=== PATIENT | female | born 1960 | race Caucasian/White ===

== ENCOUNTER 2017-01-15 15:35 | Observation (INO) | payer OTHER ==
[2017-01-15] VITALS (8 sets, daily range): BP systolic 99–159; BP diastolic 57–94; PULSE 80–104; RESP 16–24; TEMP 99.2–101.1; O2SAT 93–99
[~2017-01-15] VITALS: Ht 167.6 cm; Wt 90.0 kg
--- NOTE | 2017-01-15 15:43 | PD ---
Physical Exam Date Seen by Provider: Jan 15, 2017 Time Seen by Provider: 15:41 Narrative 56 yo female that presents to the ED for evaluation of abdominal pain and fever. Going on for a few days. Worst today. Has had headache, chest pain, body aches. Nothing makes it better. Vomited today. No BM issues. Pain in chest is constant. Hurt to take a deep breath. Vitals are stable in triage with except of elevated HR and fever. Awaiting bed placement. Data Data Last Documented VS Vital Signs Date Time Temp Pulse Resp B/P Pulse Ox O2 Delivery O2 Flow Rate FiO2 01/15/17 15:37 101.1 104 24 159/94 95 Room Air [facility] Medical Record Reviewed: Yes Supervised Visit with ISAIAH: No Alberto Echevarria Jan 15, 2017 15:43
--- NOTE | 2017-01-15 16:05 | RADRPT ---
EXAM DATE/TIME: 01/15/2017 15:44 CORRECTION Corrected on: January 17, 2017; Surgical History added [facility] COMPARISON: No previous studies available for comparison. INDICATIONS : Chest pain starting today MEDICAL HISTORY : Chronic obstructive pulmonary disease. Asthma SURGICAL HISTORY : Pacemaker ENCOUNTER: Initial ACUITY: 1 day PAIN SCORE: 10/10 LOCATION: Left chest FINDINGS: In place. Minimal linear parenchymal opacities in the left lower lung zone consistent with atelectasi s. Lungs otherwise clear. Cardiomediastinal contours are within normal limits. Bony thorax is intact. CONCLUSION: 1. Linear left lower lung zone parenchymal opacities consistent with atelectasis. Jfef Singleton MD on January 15, 2017 at 16:02 Board Certified Radiologist. This report was verified electronically. on January 17, 2017 at 10:37 Board Certified Radiologist. This report was verified electronically.
[2017-01-15 16:39] LABS: AUTOMATED NEUTROPHIL # 15.8 TH/MM3 (1.8-7.7); BASOPHIL % 0.2 % (0.0-2.0); EOSINOPHIL % 0.2 % (0.0-4.0); HEMATOCRIT 37.9 % (35.0-46.0); HEMO FLAGS DIFF FINAL; LYMPH % 8.5 % (9.0-44.0); LYMPHOCYTE # 1.5 TH/MM3 (1.0-4.8); MEAN CELL VOLUME 82.7 FL (80.0-100.0); MEAN CORPUSCULAR HEMOGLOBIN 27.3 PG (27.0-34.0); NEUT % 87.1 % (16.0-70.0); PLATELET COUNT 253 TH/MM3 (150-450); RED BLOOD COUNT 4.59 MIL/MM3 (4.00-5.30); RED CELL DISTRIBUTION WIDTH 15.2 % (11.6-17.2); WHITE BLOOD COUNT 18.2 TH/MM3 (4.0-11.0)
[2017-01-15] MEDS ORDERED: SODIUM CHLOR 0.9% 1000 ML INJ 1,000 ML IV ONE (16:45)
[2017-01-15 17:01] LABS: ANION GAP 8 MEQ/L (5-15); BICARBONATE 28.5 MEQ/L (21.0-32.0); BLOOD UREA NITROGEN 9 MG/DL (7-18); CHLORIDE 105 MEQ/L (98-107); GLOMERULAR FILTRATION RATE 91 ML/MIN (>89); POTASSIUM 3.6 MEQ/L (3.5-5.1); SODIUM (NA) 141 MEQ/L (136-145)
[2017-01-15 17:08] LABS: CREATINE KINASE 82 U/L (26-192)
--- NOTE | 2017-01-15 17:57 | PD ---
HPI Chief Complaint: Chest Pain Time Seen by Provider: 16:32 Travel History International Travel<30 days: No Contact w/Intl Traveler<30days: No Traveled to known affect area: No History of Present Illness HPI 56-year-old female with a history of pacemaker, who presents today with complaints of left lower chest pain. Patient also reports cough with fever and chills. She states she had a temperature 102.2 at home yesterday. She's rechecked it today and it was 101.1. The patient has had a cough with no production. She states she the need to cough up phlegm but can't get up. When asked about the chest pressure. She reports it's tightness across the chest without nausea or diaphoresis. She does report that she's felt dizzy. She also reported shortness of breath. PFSH Past Medical History Hiatal Hernia: Yes ?: Not Past Surgical History Abdominal Surgery: Yes (Lap band) AICD: Yes Cholecystectomy: Yes Hysterectomy: Yes Thoracic Surgery: Yes (cervial fusion) Social History Alcohol Use: Yes (occu last friday) Tobacco Use: Yes (months ago) Substance Use: No Allergies-Medications (Allergen,Severity, Reaction): Coded Allergies: Shellfish (Verified Allergy, Severe, RASH , 01/15/17) Uncoded Allergies: surgical tape (Adverse Reaction, Unknown, rash , 01/15/17) Review of Systems Except as stated in HPI: all other systems reviewed are Neg General / Constitutional: Positive: Fever, Chills HENT: Positive: Headaches (mild bifrontal), No: Lightheadedness, Neck Pain Cardiovascular: Positive: Chest Pain or Discomfort (left sided), No: Palpitations, Irregular Rhythm Respiratory: Positive: Cough (nonproductive), Shortness of Breath Gastrointestinal: Positive: Nausea, Vomiting Musculoskeletal: Positive: Pain, No: Weakness Neurologic: Positive: Headache (mild bifrontal), No: Weakness, Dizziness, Change in Mentation Physical Exam Narrative GENERAL: Well-nourished, well-developed patient in mild respiratory discomfort. SKIN: Focused skin assessment warm/dry. HEAD: Normocephalic last atraumatic. EYES: No scleral icterus. No injection or drainage. NECK: Supple, trachea midline. CARDIOVASCULAR: Regular rate and rhythm without murmurs, gallops, or rubs. RESPIRATORY: Fine Rales heard at the left base. No rhonchi. Right lung dasilva clear GASTROINTESTINAL: Abdomen soft, non-tender, nondistended. MUSCULOSKELETAL: No cyanosis, or edema. NEUROLOGICAL: Awake and alert. Cranial nerves II through XII intact. Motor grossly within normal limits. Five out of 5 muscle strength in all muscle groups. Normal speech. PSYCHIATRIC: No delusional thought processes. No hallucinations. Data Data Last Documented VS Vital Signs Date Time Temp Pulse Resp B/P Pulse Ox O2 Delivery O2 Flow Rate FiO2 01/15/17 17:32 93 16 125/70 95 Room Air 01/15/17 16:12 2 01/15/17 15:37 101.1 Orders Electrocardiogram (01/15/17 15:45) Complete Blood Count With Diff (01/15/17 15:45) Basic Metabolic Panel (Bmp) (01/15/17 15:45) Ckmb (Isoenzyme) Profile (01/15/17 15:45) Troponin I (01/15/17 15:45) Chest, Single Ap (01/15/17 15:45) Iv Access Insert/Monitor (01/15/17 15:45) Ecg Monitoring (01/15/17 15:45) Oxygen Administration (01/15/17 15:45) Oximetry (01/15/17 15:45) Blood Culture (01/15/17 16:32) Sodium Chlor 0.9% 1000 Ml Inj (Ns 1000 M (01/15/17 16:45) Ceftriaxone Inj (Rocephin Inj) (01/15/17 18:00) Azithromycin Inj (Zithromax Inj) (01/15/17 18:00) Admit Order (Ed Use Only) (01/15/17 17:59) Labs Laboratory Tests Test 01/15/17 16:10 White Blood Count 18.2 TH/MM3 Red Blood Count 4.59 MIL/MM3 Hemoglobin 12.5 GM/DL Hematocrit 37.9 % Mean Corpuscular Volume 82.7 FL Mean Corpuscular Hemoglobin 27.3 PG Mean Corpuscular Hemoglobin 33.0 % Concent Red Cell Distribution Width 15.2 % Platelet Count 253 TH/MM3 Mean Platelet Volume 8.1 FL Neutrophils (%) (Auto) 87.1 % Lymphocytes (%) (Auto) 8.5 % Monocytes (%) (Auto) 4.0 % Eosinophils (%) (Auto) 0.2 % Basophils (%) (Auto) 0.2 % Neutrophils # (Auto) 15.8 TH/MM3 Lymphocytes # (Auto) 1.5 TH/MM3 Monocytes # (Auto) 0.7 TH/MM3 Eosinophils # (Auto) 0.0 TH/MM3 Basophils # (Auto) 0.0 TH/MM3 CBC Comment DIFF FINAL Differential Comment Sodium Level 141 MEQ/L Potassium Level 3.6 MEQ/L Chloride Level 105 MEQ/L Carbon Dioxide Level 28.5 MEQ/L Anion Gap 8 MEQ/L Blood Urea Nitrogen 9 MG/DL Creatinine 0.67 MG/DL Estimat Glomerular Filtration 91 ML/MIN Rate Random Glucose 90 MG/DL Calcium Level 8.9 MG/DL Total Creatine Kinase 82 U/L Troponin I LESS THAN 0.02 NG/ML MDM Medical Decision Making Medical Screen Exam Complete: Yes Emergency Medical Condition: Yes Differential Diagnosis ACS versus pneumonia versus pulmonary embolus versus pleurisy Narrative Course 56-year-old female with a history of pacemaker, presents today with complaints of shortness of breath, cough, fever and left sided chest pain. The patient's chest pain is somewhat atypical for cardiac etiology. The patient does not have a paced rhythm on EKG. Her ventricular rate was [address] elevations or depressions. Patient's cardiac enzymes are within normal limits. The patient white blood cell count was 18,200. Given her cardiac history, I feel she would benefit from observation, given IV antibiotics and ruled out cardiac-guzman. The case was discussed with Dr. Sina Stone who is agreeable for the observation status. He'll come see the patient within the next 30 minutes. Diagnosis Primary Impression: Left lower lobe pneumonia Additional Impressions: Chest pain Leukocytosis History of pacemaker Admitting Information Admitting Physician Requests: Observation Russell Christy MD Jan 15, 2017 17:57
[2017-01-15] MEDS ORDERED: cefTRIAXone INJ 1,000 MG in SODIUM CHLORIDE 0.9% INJ 100 ML IV ONE (18:00)
[2017-01-15] MEDS ORDERED: AZITHROMYCIN INJ 500 MG in SODIUM CHLOR 0.9% 250 ML INJ 250 ML IV ONE (18:00)
--- NOTE | 2017-01-15 18:54 | HHI.HP ---
HPI Service [facility] Hospitalists Primary Care Physician Matt Fitch M.D. Admission Diagnosis left lower lobe pneumonia, chest pain, leukocytosis Chief Complaint: fever, cough, chest pain Travel History International Travel<30 Days: No Contact w/Intl Traveler <30 Da: No Traveled to Known Affected Are: No Sepsis Criteria SIRS Criteria (2 or more): Temp > 100.9 or < 96.8, WBC > 84234, < 4000 or > 10 % bands Sepsis Criteria (SIRS+source): Infect source susp/known Criteria Outcome: Meets sepsis criteria History of Present Illness [id number] female with history of bradycardic arrhythmia requiring pacemaker placement presents to the ER for fever of 101 at home with cough duration of 2 days. She noted some left chest wall pain today around her pacemaker and that combined with the fever caused her to come to the ER. Her cough has been minimally productive. She's had no foreign travel. Denies any hemoptysis or hematemesis. She notes that she does often develop a fever when she gets a cold or upper respiratory infection. She apparently has some underlying asthma or obstructive lung disease given that she is on Symbicort but she is not sure. She moved to the area only last year from [place]. No one else in her household is sick. ER evaluation revealed low-grade fever with an elevated white count of 18,000 and findings chest x-ray worrisome for possible left lower lobe infiltrate. Review of Systems Constitutional: COMPLAINS OF: Diaphoretic episodes, Fever, Chills, DENIES: Fatigue, Weight gain, Weight loss, Dizziness, Change in appetite, Night Sweats Eyes: DENIES: Blurred vision, Diplopia, Eye inflammation, Eye pain, Vision loss , Photosensitivity, Double Vision Ears, nose, mouth, throat: DENIES: Tinnitus, Hearing loss, Vertigo, Nasal discharge, Oral lesions, Throat pain, Hoarseness, Ear Pain, Running Nose, Epistaxis, Sinus Pain, Toothache, Odynophagia Respiratory: COMPLAINS OF: Cough, Sputum production, Shortness of breath, DENIES: Apneas, Snoring, Wheezing, Hemoptysis Cardiovascular: COMPLAINS OF: Chest pain, DENIES: Palpitations, Syncope, Dyspnea on Exertion, PND, Lower Extremity Edema, Orthopnea, Claudication Gastrointestinal: DENIES: Abdominal pain, Black stools, Bloody stools, BRB per rectum, Constipation, Diarrhea, GERD, Nausea, Reflux, Vomiting, Difficulty Swallowing, Anorexia, See HPI Musculoskeletal: DENIES: Joint pain, Muscle aches, Stiffness, Joint Swelling, Back pain, Neck pain Integumentary: DENIES: Abnormal pigmentation, Pruritus, Rash, Nail changes, Breast masses, Breast skin changes, Nipple discharge Immunologic/allergic: DENIES: Eczema, Urticaria Neurologic: DENIES: Abnormal gait, Headache, Localized weakness, Paresthesias, Seizures, Speech Problems, Tremor, Poor Balance Psychiatric: COMPLAINS OF: Anxiety Past Family Social History Past Medical History Bradycardic arrhythmia requiring pacer placement Possible asthma versus obstructive lung disease Obesity Past Surgical History Pacemaker placement in 2014 Cholecystectomy 2009 Ventral hernia repair 2009 Surgery for spinal stenosis around 2010 Piero-en-Y 2002 Left band 2006 Reported Medications Metoprolol 50 mg twice a day Symbicort 1 puff daily she is not sure of the dose Allergies: Coded Allergies: Shellfish (Verified Allergy, Severe, RASH , 01/15/17) Uncoded Allergies: surgical tape (Adverse Reaction, Unknown, rash , 01/15/17) Family History Mother at 100 of old age Father at 67 due to some heart disease but not [place]. Social History No tobacco in 1 year prior to that smoked about 1 pack per week for 30 years She drinks alcohol only occasionally and when she does it in the form of wine. She states she drinks wine maybe once per week and her last alcoholic beverage was this past Friday. , no biological children Moved here last year from [place] She works locally selling health insurance Physical Exam Vital Signs Vital Signs Date Time Temp Pulse Resp B/P Pulse Ox O2 Delivery O2 Flow Rate FiO2 01/15/17 17:32 93 16 125/70 95 Room Air 01/15/17 16:17 102 115/71 01/15/17 16:12 102 16 96 Room Air 01/15/17 16:12 96 01/15/17 16:12 98 2 01/15/17 15:37 101.1 104 24 159/94 95 Room Air Physical Exam GENERAL: This is a well-nourished, well-developed patient, in no apparent distress. SKIN: No rashes, ecchymoses or lesions. Cool and dry. HEAD: Atraumatic. Normocephalic. No temporal or scalp tenderness. EYES: Pupils equal round and reactive. Extraocular motions intact. No scleral icterus. No injection or drainage. Slight exophthalmos ENT: Nose without bleeding, purulent drainage or septal hematoma. Uvula midline. Airway patent. NECK: Trachea midline. No JVD or lymphadenopathy. Supple, nontender, no meningeal signs. CARDIOVASCULAR: Regular rate and rhythm without murmurs, gallops, or rubs. RESPIRATORY: Clear to auscultation. Breath sounds equal bilaterally. No wheezes , rales, or rhonchi. Slightly decreased breath sounds at the bases. GASTROINTESTINAL: Abdomen soft, non-tender, nondistended. No hepato-splenomegaly , or palpable masses. No guarding. MUSCULOSKELETAL: Extremities without clubbing, cyanosis, or edema. No joint tenderness, effusion, or edema noted. No calf tenderness. Chest wall tenderness along the left subclavicular area. NEUROLOGICAL: Awake and alert. Cranial nerves II through XII intact. Motor and sensory grossly within normal limits. Five out of 5 muscle strength in all muscle groups. Normal speech. Laboratory Laboratory Tests Test 01/15/17 16:10 White Blood Count 18.2 Red Blood Count 4.59 Hemoglobin 12.5 Hematocrit 37.9 Mean Corpuscular Volume 82.7 Mean Corpuscular Hemoglobin 27.3 Mean Corpuscular Hemoglobin 33.0 Concent Red Cell Distribution Width 15.2 Platelet Count 253 Mean Platelet Volume 8.1 Neutrophils (%) (Auto) 87.1 Lymphocytes (%) (Auto) 8.5 Monocytes (%) (Auto) 4.0 Eosinophils (%) (Auto) 0.2 Basophils (%) (Auto) 0.2 Neutrophils # (Auto) 15.8 Lymphocytes # (Auto) 1.5 Monocytes # (Auto) 0.7 Eosinophils # (Auto) 0.0 Basophils # (Auto) 0.0 CBC Comment DIFF FINAL Differential Comment Sodium Level 141 Potassium Level 3.6 Chloride Level 105 Carbon Dioxide Level 28.5 Anion Gap 8 Blood Urea Nitrogen 9 Creatinine 0.67 Estimat Glomerular Filtration 91 Rate Random Glucose 90 Calcium Level 8.9 Total Creatine Kinase 82 Troponin I LESS THAN 0.02 Date/Time Procedure Status Source Growth 01/15/17 17:10 Aerobic Blood Culture Received Blood Peripheral Pending 01/15/17 17:10 Anaerobic Blood Culture Received Blood Peripheral Pending Result Diagram: 01/15/17 1610 01/15/17 1610 Imaging Last 72 hours Impressions Chest X-Ray 01/15/17 1545 Signed Impressions: Service Date/Time: Sunday, January 15, 2017 15:44 - CONCLUSION: 1. Linear left lower lung zone parenchymal opacities consistent with atelectasis. Jeff Singleton MD Septic Shock Reassessment Lungs: Clear Skin: Warm Peripheral Pulses: Bounding Right Radial Bounding Left Radial Bounding Right Posterior Tibial Bounding Left Posterior Tibial Capillary Refill: Brisk Assessment and Plan Problem List: (1) Left lower lobe pneumonia Status: Acute Plan: We'll place in observation. Hopefully can be discharged home tomorrow with oral antibiotic therapy. She is started been given Rocephin and azithromycin here. Provide DuoNeb and incentive spirometer. We'll give 1 dose of Solu-Medrol. (2) Chest pain Status: Acute Plan: Somewhat atypical and seems to be mostly chest wall pain. Will rule out. (3) History of pacemaker Status: Chronic Plan: Continue outpatient care. She should establish with a local pipe line repairer through [facility]. She just became active with her insurance in the last month or so per her report. Code Status Full Discussed Condition With Patient and ER provider. Sina Stone MD PhD Jan 15, 2017 18:54
[2017-01-15] MEDS ORDERED: SODIUM CHLORIDE 0.9% FLUSH 10 ML FLUSH IV FLUSH PRN (19:45)
[2017-01-15] MEDS ORDERED: RESP: ALBUTEROL 2.5 MG/IPRATROPIUM 0.5 MG NEB (PRN) NEB (19:45)
[2017-01-15] MEDS ORDERED: methylPREDNISolone SOD SUCC 40 MG/1 ML VIAL IV PUSH ONE (19:45)
[2017-01-15] MEDS ORDERED: ACETAMINOPHEN 500 MG CPLT PO PRN (20:00)
[2017-01-15] MEDS: METOPROLOL TARTRATE 25 MG TAB PO SCH (20:29)
[2017-01-15] MEDS: SODIUM CHLORIDE 0.9% FLUSH 10 ML FLUSH IV FLUSH SCH (20:29)
[2017-01-15] MEDS: ACETAMINOPHEN/HYDROcodone 325 MG/5 MG TAB PO PRN (23:50)
[2017-01-16] VITALS (9 sets, daily range): BP systolic 105–125; BP diastolic 60–76; PULSE 60–70; RESP 18–19; TEMP 97.7–99; O2SAT 95–98
[2017-01-16 01:54] LABS: HDL CHOLESTEROL 57.7 MG/DL (40.0-60.0); LDL CHOLESTEROL 67 MG/DL (0-99)
[2017-01-16 02:07] LABS: CREATINE KINASE 74 U/L (26-192)
[2017-01-16 04:57] LABS: AUTOMATED NEUTROPHIL # 15.5 TH/MM3 (1.8-7.7); BASOPHIL % 0.1 % (0.0-2.0); HEMATOCRIT 35.4 % (35.0-46.0); HEMO FLAGS DIFF FINAL; LYMPH % 7.3 % (9.0-44.0); LYMPHOCYTE # 1.2 TH/MM3 (1.0-4.8); MEAN CELL VOLUME 83.4 FL (80.0-100.0); MEAN CORPUSCULAR HEMOGLOBIN 27.5 PG (27.0-34.0); MEAN CORPUSCULAR HGB CONC 32.9 % (32.0-36.0); MONO % 1.3 % (0.0-8.0); NEUT % 91.3 % (16.0-70.0); PLATELET COUNT 268 TH/MM3 (150-450); RED BLOOD COUNT 4.25 MIL/MM3 (4.00-5.30); RED CELL DISTRIBUTION WIDTH 14.9 % (11.6-17.2)
--- NOTE | 2017-01-16 08:01 | EKG ---
Date Performed: 01/15/2017 Time Performed: 15:58:45 PTAGE: 56 years EKG: Sinus rhythm NONSPECIFIC T-WAVE ABNORMALITY BORDERLINE ECG NO PREVIOUS TRACING DOCTOR: Karri Fitch Interpretating Date/Time 01/16/2017 07:56:28
[2017-01-16] MEDS: SODIUM CHLORIDE 0.9% FLUSH 10 ML FLUSH IV FLUSH SCH ×2 (08:19→20:36)
[2017-01-16] MEDS: METOPROLOL TARTRATE 25 MG TAB PO SCH (08:19)
[2017-01-16] MEDS: RESP: ALBUTEROL 2.5 MG/IPRATROPIUM 0.5 MG NEB (SCH) NEB ×5 (09:30→23:53)
[2017-01-16] MEDS ORDERED: RESP: ALBUTEROL 2.5 MG/IPRATROPIUM 0.5 MG NEB (PRN) NEB (09:30)
--- NOTE | 2017-01-16 09:37 | HHI.PR ---
Subjective Remarks Pt reports that she was having a lot of wheezing last night and this morning Pt just received a breathing treatment and feels somewhat better. She states that she typically gets pneumonia every year and this is similar to when she has had pneumonia in the past. Several people that she work with have been sick with pneumonia. 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 Afebrile overnight and this morning. Objective Vitals Vital Signs Date Time Temp Pulse Resp B/P Pulse Ox O2 Delivery O2 Flow Rate FiO2 01/16/17 08:00 60 01/16/17 07:37 97.7 62 19 121/75 97 01/16/17 03:52 97.7 60 18 105/60 95 01/16/17 00:42 60 01/16/17 00:21 99.0 60 18 117/73 95 01/15/17 21:12 99.4 80 18 124/80 93 01/15/17 20:01 94 01/15/17 19:49 99.2 82 20 107/62 96 01/15/17 19:00 82 18 99/57 99 Room Air 01/15/17 17:32 93 16 125/70 95 Room Air 01/15/17 16:17 102 115/71 01/15/17 16:12 102 16 96 Room Air 01/15/17 16:12 96 01/15/17 16:12 98 2 01/15/17 15:37 101.1 104 24 159/94 95 Room Air Result Diagram: 01/16/17 0419 01/15/17 1610 Other Results Laboratory Tests Test 01/15/17 01/16/17 01/16/17 16:10 01:15 04:19 White Blood Count 18.2 TH/MM3 17.0 TH/MM3 Red Blood Count 4.59 MIL/MM3 4.25 MIL/MM3 Hemoglobin 12.5 GM/DL 11.7 GM/DL Hematocrit 37.9 % 35.4 % Mean Corpuscular Volume 82.7 FL 83.4 FL Mean Corpuscular Hemoglobin 27.3 PG 27.5 PG Mean Corpuscular Hemoglobin 33.0 % 32.9 % Concent Red Cell Distribution Width 15.2 % 14.9 % Platelet Count 253 TH/MM3 268 TH/MM3 Mean Platelet Volume 8.1 FL 8.7 FL Neutrophils (%) (Auto) 87.1 % 91.3 % Lymphocytes (%) (Auto) 8.5 % 7.3 % Monocytes (%) (Auto) 4.0 % 1.3 % Eosinophils (%) (Auto) 0.2 % 0.0 % Basophils (%) (Auto) 0.2 % 0.1 % Neutrophils # (Auto) 15.8 TH/MM3 15.5 TH/MM3 Lymphocytes # (Auto) 1.5 TH/MM3 1.2 TH/MM3 Monocytes # (Auto) 0.7 TH/MM3 0.2 TH/MM3 Eosinophils # (Auto) 0.0 TH/MM3 0.0 TH/MM3 Basophils # (Auto) 0.0 TH/MM3 0.0 TH/MM3 CBC Comment DIFF FINAL DIFF FINAL Differential Comment Sodium Level 141 MEQ/L Potassium Level 3.6 MEQ/L Chloride Level 105 MEQ/L Carbon Dioxide Level 28.5 MEQ/L Anion Gap 8 MEQ/L Blood Urea Nitrogen 9 MG/DL Creatinine 0.67 MG/DL Estimat Glomerular Filtration 91 ML/MIN Rate Random Glucose 90 MG/DL Calcium Level 8.9 MG/DL Total Creatine Kinase 82 U/L 74 U/L Troponin I LESS THAN 0.02 LESS THAN 0.02 NG/ML NG/ML Triglycerides Level 115 MG/DL Cholesterol Level 148 MG/DL LDL Cholesterol 67 MG/DL HDL Cholesterol 57.7 MG/DL Cholesterol/HDL Ratio 2.56 RATIO Thyroid Stimulating Hormone 0.298 uIU/ML 3rd Gen Imaging Last 72 hours Impressions Chest X-Ray 01/15/17 1545 Signed Impressions: Service Date/Time: Sunday, January 15, 2017 15:44 - CONCLUSION: 1. Linear left lower lung zone parenchymal opacities consistent with atelectasis. Jeff Singleton MD Objective Remarks General: NAD, AAOx3 Chest: Bilateral wheeze Cardiac: Regular Abd: +BS, soft ND/NT Ext: No edema A/P Problem List: (1) Left lower lobe pneumonia Status: Acute Plan: - Pt presented with fevers, cough, wheezing and chest wall pain x 2 days. - CXR at admission --> Linear left lower lung zone parenchymal opacities consistent with atelectasis - She states that she typically gets pneumonia every year and this is similar to when she has had pneumonia in the past. - Several people that she work with have been sick with pneumonia. 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 - Pt had a noted fever of 101 at admission but has been afebrile overnight and this morning. - Pt was given Azithromycin and Rocephin in the ED - We will continue this. - Pt was given a dose of Solu-medrol following admission. - Schedule Duonebs Q4H and Q2H PRN - Supportive care - DVT prophylaxis with SCDs (2) Chest pain Status: Acute Plan: - Somewhat atypical and seems to be mostly chest wall pain. - Serial CE are negative. (3) History of pacemaker Status: Chronic Plan: - Continue outpatient care. She should establish with a local core placer through [facility]. - She just became active with her insurance in the last month or so per her report. Assessment and Plan Patient examined. Assessment and plan formulated with Mihaela Sheets PA-C. I agree with the above. left lower lung pna. reactive airways. palpable mobile node vs lipoma left axillary. CT chest. cont abx/nebs/steroid today then d/c in AM she also had some left anterolat chest wall tenderness. Mihaela Sheets Jan 16, 2017 09:37 Baldomero Huertas MD Jan 16, 2017 16:01
[2017-01-16] MEDS ORDERED: REME15TA PO (10:33)
[2017-01-16] MEDS ORDERED: KLON2TAB PO (10:33)
[2017-01-16] MEDS ORDERED: METO50TA PO (10:33)
[2017-01-16] MEDS ORDERED: ORPH100T PO (10:33)
[2017-01-16] MEDS ORDERED: NAPR500 PO (10:33)
[2017-01-16] MEDS ORDERED: LEXA10TA PO (10:33)
[2017-01-16] MEDS ORDERED: AMBI10TA PO (10:33)
[2017-01-16] MEDS ORDERED: PERC5TAB12 PO (10:33)
[2017-01-16] MEDS: methylPREDNISolone SOD SUCC 125 MG/2 ML VIAL IV PUSH SCH ×2 (13:11→18:07)
[2017-01-16] MEDS ORDERED: clonazePAM 1 MG TAB PO PRN (13:15)
[2017-01-16] MEDS ORDERED: ZOLPIDEM TARTRATE 10 MG TAB PO PRN (13:15)
--- NOTE | 2017-01-16 15:11 | RADRPT ---
EXAM DATE/TIME: 01/16/2017 13:27 [facility] COMPARISON: No previous studies available for comparison. INDICATIONS : Shortness of breath. RADIATION DOSE: 5.23 CTDIvol (mGy) MEDICAL HISTORY : Cardiovascular disease. SURGICAL HISTORY : Pacemaker. Cholecystectomy.Hysterectomy. Lap band, breast reduction. ENCOUNTER: Initial ACUITY: 2 days PAIN SCALE: 0/10 LOCATION: chest TECHNIQUE: Volumetric scanning of the chest was performed. Using automated exposure control and adjustment of t he mA and/or kV according to patient size, radiation dose was kept as low as reasonably achievable to obtain optimal diagnostic quality images. DICOM format image data is available electronically for r eview and comparison. FINDINGS: LUNGS: Minimal faint airspace disease is identified in the left lower lobe. Lungs are low as clear without e vidence of consolidating airspace disease or significant congestion. PLEURAE: There is no pleural thickening or pleural effusion. MEDIASTINUM: Small subcentimeter nonspecific lymph nodes are identified along the aortic arch in the prevascular s pace. Dual-lead pacemaker is noted in place. The heart and great vessels demonstrate no acute abnorma lity. There is no additional mediastinal or hilar lymphadenopathy. AXILLAE: Within normal limits. No lymphadenopathy. MUSCULOSKELETAL: Within normal limits for patient age. MISCELLANEOUS: The visualized upper abdominal organs demonstrate no acute abnormality. Gastric lap band is noted in place. CONCLUSION: Minimal airspace disease left lower lobe otherwise no evidence of significant or acute cardiopulmonar y process. Dual chamber pacemaker Small nonspecific prevascular lymph nodes adjacent to the aortic arch. Left and in place. Torrey Escoto MD on January 16, 2017 at 15:04 Board Certified Radiologist. This report was verified electronically.
[2017-01-16] MEDS ORDERED: cefTRIAXone INJ 1,000 MG in SODIUM CHLORIDE 0.9% INJ 100 ML IV SCH (18:00)
[2017-01-16] MEDS ORDERED: AZITHROMYCIN INJ 500 MG in SODIUM CHLOR 0.9% 250 ML INJ 250 ML IV SCH (19:00)
[2017-01-16] MEDS: ACETAMINOPHEN/HYDROcodone 325 MG/5 MG TAB PO PRN (20:39)
[2017-01-16] MEDS ORDERED: MIRTAZAPINE 15 MG TAB PO SCH (21:00)
[2017-01-17 00:11] VITALS: BP 97/53; PULSE 60; RESP 18; TEMP 98; O2SAT 97
[2017-01-17] MEDS: methylPREDNISolone SOD SUCC 125 MG/2 ML VIAL IV PUSH SCH (00:27)
[2017-01-17] MEDS: RESP: ALBUTEROL 2.5 MG/IPRATROPIUM 0.5 MG NEB (SCH) NEB ×3 (04:21→12:09)
[2017-01-17 05:23] VITALS: BP 96/61; PULSE 60; RESP 18; TEMP 98.1; O2SAT 93
[2017-01-17 07:15] VITALS: O2SAT 98
[2017-01-17 08:03] VITALS: BP 103/72; PULSE 62; RESP 18; TEMP 98.6; O2SAT 95
--- NOTE | 2017-01-17 08:31 | HHI.PR ---
Subjective Remarks Pt overall feeling better today No wheezing Slept well. Objective Vitals Vital Signs Date Time Temp Pulse Resp B/P Pulse Ox O2 Delivery O2 Flow Rate FiO2 01/17/17 08:03 98.6 62 18 103/72 95 01/17/17 07:15 98 01/17/17 05:23 98.1 60 18 96/61 93 01/17/17 00:11 98.0 60 18 97/53 97 01/16/17 21:53 64 01/16/17 20:00 98.4 65 18 125/64 98 01/16/17 15:24 98.0 60 18 109/67 95 01/16/17 12:14 98.1 70 18 117/76 97 01/16/17 01/16/17 01/17/17 15:00 23:00 07:00 Intake Total 500 ml 400 ml Balance 500 ml 400 ml Intake Oral 500 ml 400 ml # Voids 2 1 Result Diagram: 01/16/17 0419 01/15/17 1610 Other Results Laboratory Tests Test 01/15/17 01/16/17 01/16/17 16:10 01:15 04:19 White Blood Count 18.2 TH/MM3 17.0 TH/MM3 Red Blood Count 4.59 MIL/MM3 4.25 MIL/MM3 Hemoglobin 12.5 GM/DL 11.7 GM/DL Hematocrit 37.9 % 35.4 % Mean Corpuscular Volume 82.7 FL 83.4 FL Mean Corpuscular Hemoglobin 27.3 PG 27.5 PG Mean Corpuscular Hemoglobin 33.0 % 32.9 % Concent Red Cell Distribution Width 15.2 % 14.9 % Platelet Count 253 TH/MM3 268 TH/MM3 Mean Platelet Volume 8.1 FL 8.7 FL Neutrophils (%) (Auto) 87.1 % 91.3 % Lymphocytes (%) (Auto) 8.5 % 7.3 % Monocytes (%) (Auto) 4.0 % 1.3 % Eosinophils (%) (Auto) 0.2 % 0.0 % Basophils (%) (Auto) 0.2 % 0.1 % Neutrophils # (Auto) 15.8 TH/MM3 15.5 TH/MM3 Lymphocytes # (Auto) 1.5 TH/MM3 1.2 TH/MM3 Monocytes # (Auto) 0.7 TH/MM3 0.2 TH/MM3 Eosinophils # (Auto) 0.0 TH/MM3 0.0 TH/MM3 Basophils # (Auto) 0.0 TH/MM3 0.0 TH/MM3 CBC Comment DIFF FINAL DIFF FINAL Differential Comment Sodium Level 141 MEQ/L Potassium Level 3.6 MEQ/L Chloride Level 105 MEQ/L Carbon Dioxide Level 28.5 MEQ/L Anion Gap 8 MEQ/L Blood Urea Nitrogen 9 MG/DL Creatinine 0.67 MG/DL Estimat Glomerular Filtration 91 ML/MIN Rate Random Glucose 90 MG/DL Calcium Level 8.9 MG/DL Total Creatine Kinase 82 U/L 74 U/L Troponin I LESS THAN 0.02 LESS THAN 0.02 NG/ML NG/ML Triglycerides Level 115 MG/DL Cholesterol Level 148 MG/DL LDL Cholesterol 67 MG/DL HDL Cholesterol 57.7 MG/DL Cholesterol/HDL Ratio 2.56 RATIO Free Thyroxine 0.97 NG/DL Thyroid Stimulating Hormone 0.298 uIU/ML [facility] Last Impressions Chest CT 01/16/17 0000 Signed Impressions: Service Date/Time: December 13:27 - CONCLUSION: Minimal airspace disease left lower lobe otherwise no evidence of significant or acute cardiopulmonary process. Dual chamber pacemaker Small nonspecific prevascular lymph nodes adjacent to the aortic arch. Left and in place. Torrey Escoto MD Chest X-Ray 01/15/17 1545 Signed Impressions: Service Date/Time: Sunday, January 15, 2017 15:44 - CONCLUSION: 1. Linear left lower lung zone parenchymal opacities consistent with atelectasis. Jeff Singleton MD Objective Remarks General: NAD, AAOx3 Chest: CTA Cardiac: Regular Abd: +BS, soft ND/NT Ext: No edema A/P Problem List: (1) Left lower lobe pneumonia Status: Acute Plan: - Pt presented with fevers, cough, wheezing and chest wall pain x 2 days. - CXR at admission --> Linear left lower lung zone parenchymal opacities consistent with atelectasis - She states that she typically gets pneumonia every year and this is similar to when she has had pneumonia in the past. - Several people that she work with have been sick with pneumonia. 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 - Pt had a noted fever of 101 at admission but has been afebrile overnight and this morning. - Pt was given Azithromycin and Rocephin in the ED, this was continued. - Pt was given a dose of Solu-medrol following admission and was given a few doses of Solumedrol yesterday. - Schedule Duonebs Q4H and Q2H PRN - On examination pt had noted palpable mobile node vs lipoma left axillary. - CT chest (01/16) --> Minimal airspace disease left lower lobe otherwise no evidence of significant or acute cardiopulmonary process. Dual chamber pacemaker Small nonspecific prevascular lymph nodes adjacent to the aortic arch. - Pt is symptomatically improving. - Anticipate discharge to home this afternoon. - She will continue the Duoneb treatments 3-4 times per day for the next 4 days , then can use as needed. - We will discharge with 5 days of continued with Augmentin and Azithromycin - Pt will continue a quick prednisone taper. - Pt will need to followup with her PCP within 1 week. She will also need to schedule a Mammogram and Breast US to further evaluate this mobile node vs. lipoma in the left breast/axillary region. Her mother and sister both had breast cancer. - Patient is also requesting to be seen by a Provider Relations Specialist. - Called Dr. Fitch's office and left a message with the nursing staff regarding the above information and need for referrals for the Mammogram, breast US and Pulmonary consult (2) Chest pain Status: Acute Plan: - Somewhat atypical and seems to be mostly chest wall pain. - Serial CE are negative. (3) History of pacemaker Status: Chronic Plan: - Continue outpatient care. She should establish with a local healthcare management through [facility]. - She just became active with her insurance in the last month or so per her report. - Patient is concerned about the functionality of her pacemaker as the nursing staff had reported overnight to the pt that her HR decreased into the 20's although there is no evidence of this upon review of her surveillance system monitor which has been on since admission. - We will have her pacemaker interrogated prior to discharge today Assessment and Plan Patient examined. Assessment and plan formulated with Mihaela Sheets PA-C. I agree with the above. pna/reactive airways. improved pt says nursing told her about hr in 20s. we have no proof of this upon review of tele. will get pm interrogation before d/c. ct chest no masses. bronchiectasis and airspace dz noted. called pcp office to get mammogram and breast u/s upon f/u also she can be referred to pulmonary. I offered to have pulmonary see her but she prefers someone from [place] and so her pcp will refer locally. Mihaela Sheets Jan 17, 2017 08:31 Baldomero Huertas MD Jan 17, 2017 12:24
[2017-01-17] MEDS ORDERED: AZIT500T2 PO (08:37)
--- NOTE | 2017-01-17 08:38 | HHI.DCPOC ---
Discharge Care Plan Diagnosis: (1) Leukocytosis (2) Chest pain (3) Left lower lobe pneumonia (4) History of pacemaker (5) Left breast lump Goals to Promote Your Health * To prevent worsening of your condition and complications * To maintain your health at the optimal level Directions to Meet Your Goals Take your medications as prescribed Follow your dietary instruction Follow activity as directed Keep your appointments as scheduled Take your immunizations and boosters as scheduled If your symptoms worsen call your PCP, if no PCP go to Urgent Care Center or Emergency Room Smoking is Dangerous to Your Health. Avoid second hand smoke Call the 24-hour hour crisis hotline for domestic abuse at Mihaela Sheets Jan 17, 2017 08:38
[2017-01-17] MEDS ORDERED: ESCITALOPRAM OXALATE 10 MG TAB PO SCH (09:00)
[2017-01-17] MEDS: SODIUM CHLORIDE 0.9% FLUSH 10 ML FLUSH IV FLUSH SCH (09:02)
[2017-01-17] MEDS ORDERED: AUGM875T3 PO (10:28)
[2017-01-17] MEDS ORDERED: PRED20 PO (11:09)
[2017-01-17 11:11] VITALS: PULSE 60
== END 2017-01-17 13:45 | disposition home or self-care (01) ==
LOC: NEPC 15:35 → NEDA 18:01 → NEPGCP 20:06
PROVIDERS: ADMIT Hospitalist; ATTEND Hospitalist
DX: J18.9 Pneumonia, unspecified organism (principal); R07.89 Other chest pain; R11.10 Vomiting, unspecified; R42 Dizziness and giddiness; R11.2 Nausea with vomiting, unspecified; J44.0 Chronic obstructive pulmonary disease with (acute) lower respiratory infection; J45.909 Unspecified asthma, uncomplicated; R91.8 Other nonspecific abnormal finding of lung field; N63 Unspecified lump in breast; E66.9 Obesity, unspecified; Z98.84 Bariatric surgery status; Z87.891 Personal history of nicotine dependence; Z95.0 Presence of cardiac pacemaker; Z87.01 Personal history of pneumonia (recurrent)
CPT/HCPCS: 71010; 71250; 80048; 80061; 82550; 84439; 84443; 84484; 85025; 87040; 93005; 94150; 94640; 94664; 96361; 96374; 99285; G0378; J0456; J0696; J2920; J2930; J7030; J7050

== ENCOUNTER 2018-06-23 22:48 | Inpatient (IN) ==
[2018-06-23 23:55] LABS: Baso # (Auto) 0.1 th/mm3 (0.0-0.2); Baso % (Auto) 0.5 % (0.0-2.0); Eos # (Auto) 0.5 th/mm3 (0.0-0.4); Eos % (Auto) 3.8 % (0.0-4.0); Hematocrit 39.9 % (35.0-46.0); Hemoglobin 13.5 gm/dL (11.6-15.3); Lymph # (Auto) 3.2 th/mm3 (1.0-4.8); Lymph % (Auto) 25.6 % (9.0-44.0); Mean Corpuscular HGB Conc 33.8 % (32.0-36.0); Mean Corpuscular Hemoglobin 29.4 pg (27.0-34.0); Mean Corpuscular Volume 87.2 fL (80.0-100.0); Mean Platelet Volume 8.4 fL (7.0-11.0); Mono # (Auto) 0.9 th/mm3 (0.0-0.9); Neut # (Auto) 7.9 th/mm3 (1.8-7.7); Neut % (Auto) 63.1 % (16.0-70.0); Platelet Count 211 th/mm3 (150-450); Red Blood Count 4.58 mil/mm3 (4.00-5.30); Red Cell Distribution Width 17.1 % (11.6-17.2); White Blood Count 12.5 th/mm3 (4.0-11.0)
[2018-06-24 00:08] LABS: Alkaline Phosphatase 91 U/L (45-117)
[2018-06-24 00:10] LABS: Alanine Aminotransferase 28 U/L (10-53); Albumin 3.4 g/dL (3.4-5.0); Anion Gap 8 meq/L (5-15); Aspartate Aminotransferase 31 U/L (15-37); Blood Urea Nitrogen 12 mg/dL (7-18); Calcium 8.2 mg/dL (8.5-10.1); Chloride 111 meq/L (98-107); Glomerular Filtration Rate 86 mL/min (>89); Glucose,Random 91 mg/dL (74-106); Magnesium 1.6 mg/dL (1.5-2.5); Potassium 3.6 meq/L (3.5-5.1); Sodium 144 meq/L (136-145)
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
[2018-06-24] MEDS ORDERED: Aluminum/Magnesium/Simethacone Susp 30 ML UDC PO PRN (10:32)
[2018-06-24 12:47] LABS: Amphetamine Screen,Urine Neg (Neg); Barbiturate Screen,Urine Pos (Neg); Cannabinoid Screen,Urine Neg (Neg); Cocaine Screen,Urine Neg (Neg)
[2018-06-24 12:48] LABS: Opiate Screen,Urine Neg (Neg)
[2018-06-24] MEDS: Ibuprofen 600 MG Tablet PO SCH ×2 (13:16→21:04)
[2018-06-24] MEDS ORDERED: Influenza (Quadrivalent) Vaccine 0.5 ML Syringe IM ONE (17:00)
[2018-06-24] MEDS: Senna/Docusate Sodium 8.6/50 MG Tablet PO SCH (20:15)
[2018-06-25] MEDS: Ibuprofen 600 MG Tablet PO SCH (05:46)
[2018-06-25 07:18] LABS: Cholesterol 182 mg/dL (120-200); Triglycerides 120 mg/dL (42-150)
[2018-06-25 07:20] LABS: Chol/HDL Ratio 3.11 Ratio; HDL Cholesterol 58.5 mg/dL (40.0-60.0); LDL Cholesterol,Calculated 100 mg/dL (0-99)
[2018-06-25 07:21] LABS: Anion Gap 7 meq/L (5-15); Blood Urea Nitrogen 12 mg/dL (7-18); Calcium 8.4 mg/dL (8.5-10.1); Carbon Dioxide 25.3 meq/L (21.0-32.0); Chloride 110 meq/L (98-107); Glomerular Filtration Rate Greater Than 89 mL/min (>89); Glucose,Random 85 mg/dL (74-106); Potassium 3.7 meq/L (3.5-5.1); Sodium 142 meq/L (136-145)
[2018-06-25] MEDS: Senna/Docusate Sodium 8.6/50 MG Tablet PO SCH ×2 (08:49→20:57)
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
[2018-06-25] MEDS ORDERED: traZODone 100 MG Tablet PO PRN (12:07)
[2018-06-25 13:59] LABS: Hemoglobin A1c 5.3 % (4.3-6.0)
[2018-06-25] MEDS: Gabapentin 300 MG Capsule PO SCH ×2 (14:54→17:33)
[2018-06-25] MEDS: clonazePAM 1 MG Tablet PO SCH ×2 (14:54→20:59)
--- NOTE | 2018-06-25 16:54 | ECG ---
Date Performed: 06/25/2018 Time Performed: 10:56:43 PTAGE: 58 years EKG: ELECTRONIC ATRIAL PACEMAKER MODERATE T-WAVE ABNORMALITY, CONSIDER ANTERIOR ISCHEMIA Compare d to previous tracing, the atrial rate is paced. The anterior T wave changes were previously noted, b ut there's been some slight variation in the T wave changes. Otherwise no significant change ABNORMAL ECG PREVIOUS TRACING : 01/15/2017 15.58 DOCTOR: Suze Gayle Interpretating Date/Time 06/25/2018 16:54:18
[2018-06-26] MEDS: clonazePAM 1 MG Tablet PO SCH ×2 (08:56→20:26)
[2018-06-26] MEDS: Senna/Docusate Sodium 8.6/50 MG Tablet PO SCH ×2 (08:57→20:26)
[2018-06-26] MEDS: Gabapentin 300 MG Capsule PO SCH ×3 (08:57→17:18)
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
--- NOTE | 2018-06-26 12:32 | P.PNPSY ---
Subjective Chief Complaint: "I would have completed the job if they had not stopped me from getting my other medications" Remarks: The patient was interviewed in the privacy of their room and accompanied by the assigned nurse. We reviewed the patient's mood, thoughts, and behaviors from overnight and this morning. The patient reportedly had difficulty falling asleep last night and was given her trazodone 100 mg at bedtime. The patient reports that her sleep remains restless but she got approximately 6 hours of sleep. The patient complained of continued pain in her left shoulder as well as lower back and right hand which are chronic areas for her pain. She rates the pain as 8 out of 10 and unrelieved by Motrin 800 mg that was given last evening. The patient requests that she be restarted on her Percocet. We discussed the risk benefits side effects and alternative treatments for pain and anxiety and specifically discussed the risks of combining opiate pain medications with benzodiazepines as well as other sedative hypnotics. Patient chooses to continue her Percocet for chronic and acute pain but agrees to start a slow taper off of her Klonopin and to explore further treatments of anxiety. She denies active suicidal ideations or thoughts of harming her spouse. Review of Systems Musculoskeletal: Reports back pain, Reports joint pain Psychiatric: Reports abnormal sleep pattern, Reports anxiety, Reports depression , Reports difficulty concentrating, Denies seeing things others do not see, Denies sensing things others do not sense, Denies thoughts of hurting/killing others, Denies thoughts of hurting/killing yourself Mental Status Examination Appearance: Disheveled Consciousness: Alert Orientation: x4 Motor Activity: Abnormal gait (requires walker) Speech: Unremarkable Language: Adequate Fund of Knowledge: Adequate Attention and Concentration: Adequate Memory: Unremarkable Mood: Sad, Anxious Affect: Other (Dysphoric) Thought Process & Associations: Intact, Logical, Circumstantial Thought Content: Appropriate Hallucination Type: None Delusion Type: None Suicidal Ideation: No Suicidal Plan: No Suicidal Intention: No Homicidal Ideation: No Homicidal Plan: No Homicidal Intention: No Insight: Fair Judgment: Impulsive Assessment and Plan - Assessment (1) Major depressive disorder, recurrent, moderate Code(s): F33.1 - Major depressive disorder, recurrent, moderate Status: Acute (2) Anxiety disorder, unspecified Code(s): F41.9 - Anxiety disorder, unspecified Status: Acute (3) Chronic pain Code(s): G89.29 - Other chronic pain Status: Acute - Plan Plan: 06/25/2018 initial assessment and plan: The patient is a 58-year-old female with a history of recurrent depression and anxiety most recently aggravated by conflicts arising with her and sister. Patient has history of multiple suicide attempts by overdose when feeling overwhelmed with family conflicts and she presented with this admission after taking a overdose of low lethality in front of her sister after arguing with her . She continues to report suicidal ideations and intent but is cooperative with care in the hospital and willing to contract for safety while on the unit. The patient has not been followed by psychiatry since her last admission in January 2018 and her medication regimen is complicated by being treated with 3 controlled substances for pain, sleep and anxiety. We discussed risks benefits side effects and alternative treatments for her mood and anxiety the patient chooses the following; restart gabapentin for chronic pain, restart Klonopin for anxiety but at a reduced dose of 1 mg twice a day, restart Lexapro but at a increased dose of 20 mg a day for anxiety and depression, start Motrin 800 mg every 8 hours for pain, start trazodone 100 mg at bedtime as needed for insomnia. Patient will be referred to the hospitalist for consultation and evaluation of treatments for her COPD as well as chronic pain. 1. Continue with admission to inpatient psychiatry at [facility] [address]; involuntary/competent legal status. 2. Routine unit precautions. 3. Comfort medications ordered for as needed treatment of constipation, heartburn, diarrhea, and mild pain. 4. Hydroxyzine 50mg po q6H prn anxiety/insomnia. 5. Patient will participate in the unit programming to include group therapies , milieu therapy and recreational therapies. 06/26/2018: Fair initial response to inpatient treatment plan and stabilization, the patient is currently denying active suicidal thoughts or thoughts of harming her spouse. Patient continues to express symptoms of depression and anxiety but her thought content is more future oriented. She is tolerated and actually did not notice a decrease made to her Klonopin and she agrees with the plan of a slow taper off the Klonopin and we will explore alternatives for long- term treatment of her anxiety with an outpatient psychiatrist. The patient's Lexapro was increased to 20 to address her chronic anxiety and worsening depression and she has thus far tolerated this dose increase. The patient's pain has remained severe and her chronic pain treatment was verified with the divorce therefore she will be restarted on her Percocets 5 mg every 6 hours as needed for pain. Hospice was consulted and they have evaluated the patient and started her on medications for COPD. Plan: 1. Continue inpatient stabilization and treatment plan as noted above. 2. Increase trazodone to 150 mg at bedtime as needed for sleep. 3. Restart Percocet 5/325 1 by mouth every 6 hours as needed for pain greater than 6 out of 10. 4. Discharge planning: Family meeting with spouse recommended prior to discharge, anticipate discharge early next week. Justification for Continued Inpatient Stay: Patient remains an elevated risk for self-harm and will require further inpatient stabilization and preparation of a safe discharge plan. Moving patient to a less restrictive environment at this time may result in decompensation. Request Healthcare Surrogate/Guardian Advocate?: No
[2018-06-26] MEDS: Budesonide-Formoterol 80/4.5 MCG 6.9 GM Inhaler INH SCH (20:26)
[2018-06-26] MEDS: traZODone 100 MG Tablet PO PRN (21:14)
[2018-06-27] MEDS: Gabapentin 300 MG Capsule PO SCH ×3 (08:57→18:06)
[2018-06-27] MEDS: clonazePAM 1 MG Tablet PO SCH ×2 (08:57→20:30)
[2018-06-27] MEDS: Senna/Docusate Sodium 8.6/50 MG Tablet PO SCH ×2 (08:57→20:30)
[2018-06-27] MEDS: Budesonide-Formoterol 80/4.5 MCG 6.9 GM Inhaler INH SCH ×2 (09:23→20:30)
--- NOTE | 2018-06-27 14:13 | P.PNPSY ---
Subjective Chief Complaint: admitted secondary to suicide attempt via OD Remarks: Pt seen and discussed with staff. She was admitted secondary to overdose with clonazepam and percocet. She has been irritable and demanding on unit. She has been compliant with medications. She denies SI/HI, but states that she is angry that she is still alive and wishes she could have finished the job. She blames and sister for her suicide attempt and has little insight. Mental Status Examination Appearance: Appropriate Consciousness: Alert Orientation: x4 Motor Activity: Abnormal gait (requires walker) Speech: Unremarkable Language: Adequate Fund of Knowledge: Adequate Attention and Concentration: Adequate Memory: Unremarkable Mood: Angry, Sad, Irritable Affect: Irritable Thought Process & Associations: Intact Thought Content: Appropriate Hallucination Type: None Delusion Type: None Suicidal Ideation: Yes Suicidal Plan: Yes Suicidal Intention: No Homicidal Ideation: No Homicidal Plan: No Homicidal Intention: No Insight: Poor Judgment: Impulsive Assessment and Plan - Assessment (1) Major depressive disorder, recurrent, moderate Code(s): F33.1 - Major depressive disorder, recurrent, moderate Status: Acute (2) Anxiety disorder, unspecified Code(s): F41.9 - Anxiety disorder, unspecified Status: Acute (3) Chronic pain Code(s): G89.29 - Other chronic pain Status: Acute - Plan Plan: Continue current tx plan Justification for Continued Inpatient Stay: impairments in safety Request Healthcare Surrogate/Guardian Advocate?: No
[2018-06-27] MEDS: traZODone 100 MG Tablet PO PRN (20:30)
[2018-06-28] MEDS: Gabapentin 300 MG Capsule PO SCH ×3 (08:12→17:10)
[2018-06-28] MEDS: Senna/Docusate Sodium 8.6/50 MG Tablet PO SCH ×2 (08:12→20:33)
[2018-06-28] MEDS: clonazePAM 1 MG Tablet PO SCH ×2 (08:12→20:33)
[2018-06-28] MEDS: Budesonide-Formoterol 80/4.5 MCG 6.9 GM Inhaler INH SCH ×2 (08:13→20:32)
--- NOTE | 2018-06-28 10:32 | P.PNPSY ---
Subjective Chief Complaint: admitted secondary to suicide attempt via OD Remarks: Reviewed electronic record and discussed with nursing staff. Rounded with TAWANDA Isaacs. Patient is in her bed with multiple covers. She states that she has alot of stressors and that she overdosed on clonazepem and percocet in an attempt to end her life. The nursing staff share that her has Stage IV liver cancer and their is alot of tension in the home. Patient states her mood is about the same but she no longer feels suicidal or homicidal. She states, " my mood will get better once it stops raining." Review of Systems All other systems reviewed negative except as stated in HPI Comments: chronic pain Mental Status Examination Appearance: Appropriate Consciousness: Alert Orientation: x4 Motor Activity: Abnormal gait (requires walker) Speech: Unremarkable Language: Adequate Fund of Knowledge: Adequate Attention and Concentration: Adequate Memory: Unremarkable Mood: Angry, Sad, Irritable Affect: Irritable Thought Process & Associations: Intact Thought Content: Appropriate Hallucination Type: None Delusion Type: None Suicidal Ideation: No Suicidal Plan: No Suicidal Intention: No Homicidal Ideation: No Homicidal Plan: No Homicidal Intention: No Insight: Poor Judgment: Impulsive Assessment and Plan - Assessment (1) Anxiety disorder, unspecified Code(s): F41.9 - Anxiety disorder, unspecified Status: Acute (2) Chronic pain Code(s): G89.29 - Other chronic pain Status: Acute (3) Major depressive disorder, recurrent, moderate Code(s): F33.1 - Major depressive disorder, recurrent, moderate Status: Acute - Plan Plan: Continue current tx plan Justification for Continued Inpatient Stay: Moving patient to a less restrictive environment may result in her decompensation. Request Healthcare Surrogate/Guardian Advocate?: No
[2018-06-28] MEDS: traZODone 100 MG Tablet PO PRN (20:32)
[2018-06-29] MEDS: Senna/Docusate Sodium 8.6/50 MG Tablet PO SCH ×2 (08:45→20:38)
[2018-06-29] MEDS: Gabapentin 300 MG Capsule PO SCH ×3 (08:45→17:26)
[2018-06-29] MEDS: clonazePAM 1 MG Tablet PO SCH ×2 (08:45→20:38)
[2018-06-29] MEDS: Budesonide-Formoterol 80/4.5 MCG 6.9 GM Inhaler INH SCH ×2 (09:40→20:38)
--- NOTE | 2018-06-29 15:52 | P.PNPSY ---
Subjective Chief Complaint: admitted secondary to suicide attempt via OD Remarks: The patient was interviewed in the privacy of their room and accompanied by the assigned nurse. We reviewed the patient's mood, thoughts, and behaviors from overnight and this morning. Patient reports that the patient is mostly seclusive to her room. She has been pleasant calm and cooperative with care. She denies suicidal ideations. The patient was seen this morning and complained of nausea and intermittent vomiting since the night before. We discussed risks benefits side effects and alternative treatments she would like to be started on Zofran because it has been effective for her in the past. As far as her anxiety symptoms, she reports decreased anxiety since admission and expressed satisfaction with the current dose of Klonopin. As for sleep, she reports improved sleep compared to her Ambien but she would like to try an increase of the trazodone due to frequent awakenings throughout the night. The patient described interactions with her extended family and feels very supportive and this is associated with improved hope and emotional well-being. The patient remains concerned about conflicts with her spouse and requests a family meeting prior to her discharge. Review of Systems All other systems reviewed negative except as stated in HPI Mental Status Examination Appearance: Appropriate Consciousness: Alert Orientation: x4 Motor Activity: Abnormal gait (requires walker) Speech: Unremarkable Language: Adequate Fund of Knowledge: Adequate Attention and Concentration: Adequate Memory: Unremarkable Mood: Sad, Anxious Affect: Anxious Thought Process & Associations: Intact Thought Content: Appropriate Hallucination Type: None Delusion Type: None Suicidal Ideation: No Suicidal Plan: No Suicidal Intention: No Homicidal Ideation: No Homicidal Plan: No Homicidal Intention: No Insight: Fair Judgment: Impulsive Assessment and Plan - Assessment (1) Major depressive disorder, recurrent, moderate Code(s): F33.1 - Major depressive disorder, recurrent, moderate Status: Acute (2) Anxiety disorder, unspecified Code(s): F41.9 - Anxiety disorder, unspecified Status: Acute (3) Chronic pain Code(s): G89.29 - Other chronic pain Status: Acute - Plan Plan: 06/29/2018: Fair response to treatment, the patient is reporting improved mood and decreased anxiety and she has tolerated the medication changes since admission. She continues to express anxiety and concern over conflicts with her spouse and expresses a belief that she may become suicidal again if discharged home without improvements in her sense of security. Her spouse was contacted by social work and he is agreeable to marriage counseling and as well as a family meeting prior to discharge any except expressed sincere motivation to support his and have her return home. Plan 1. Continue current inpatient treatment plan and stabilization. 2. Increase trazodone to 200 mg at bedtime for sleep. 3. Start Zofran 4 mg every 6 hours as needed for nausea. 4. Discharge planning: Anticipate discharge home with spouse this week if family meeting is successful. Justification for Continued Inpatient Stay: Patient remains an elevated risk for self-harm as evident by her suggesting that she would have her relapse of suicidality if discharged home today and will require further inpatient stabilization and preparation of a safe discharge plan. Moving patient to a less restrictive environment at this time may result in decompensation. Request Healthcare Surrogate/Guardian Advocate?: No
[2018-06-29] MEDS: traZODone 100 MG Tablet PO PRN (23:10)
[2018-06-30] MEDS: Budesonide-Formoterol 80/4.5 MCG 6.9 GM Inhaler INH SCH ×2 (09:13→21:11)
[2018-06-30] MEDS: Gabapentin 300 MG Capsule PO SCH ×3 (09:14→18:01)
[2018-06-30] MEDS: Senna/Docusate Sodium 8.6/50 MG Tablet PO SCH ×2 (09:14→21:10)
[2018-06-30] MEDS: clonazePAM 1 MG Tablet PO SCH ×2 (09:14→21:10)
[2018-06-30 13:40] LABS: Baso % (Auto) 0.2 % (0.0-2.0); Eos # (Auto) 0.2 th/mm3 (0.0-0.4); Eos % (Auto) 1.5 % (0.0-4.0); Hematocrit 38.6 % (35.0-46.0); Hemoglobin 13.4 gm/dL (11.6-15.3); Lymph # (Auto) 1.7 th/mm3 (1.0-4.8); Mean Corpuscular HGB Conc 34.6 % (32.0-36.0); Mean Corpuscular Hemoglobin 31.2 pg (27.0-34.0); Mean Corpuscular Volume 90.2 fL (80.0-100.0); Mean Platelet Volume 8.2 fL (7.0-11.0); Mono # (Auto) 0.5 th/mm3 (0.0-0.9); Mono % (Auto) 3.9 % (0.0-8.0); Neut # (Auto) 10.8 th/mm3 (1.8-7.7); Neut % (Auto) 81.4 % (16.0-70.0); Platelet Count 245 th/mm3 (150-450); Red Blood Count 4.28 mil/mm3 (4.00-5.30); Red Cell Distribution Width 16.7 % (11.6-17.2); White Blood Count 13.3 th/mm3 (4.0-11.0)
--- NOTE | 2018-06-30 13:55 | P.PNPSY ---
Subjective Chief Complaint: admitted secondary to suicide attempt via OD Remarks: Patient seen for follow-up, chart reviewed, patient discussed with nursing staff ; we reviewed the patient's mood, thoughts, and behaviors from overnight and this morning. This reports that the patient continues to complain of 10 out of 10 pain but is satisfied with pain management which includes using her Percocet fives 3 times a day intermittently with Motrin 800 mg 3 times a day. The patient was noted to become emotionally distressed after a phone call with her spouse last evening but she denied suicidal or homicidal ideations. The patient was observed to sleep 6 hours overnight. Patient reports that she is concerned with her ability to control her anger and her moods if she would be discharged at this time. She expressed feeling emotionally very sensitive to interactions with her and gave examples of how the tone of his voice gives her anxiety attacks and makes her feel helpless and hopeless. The patient rates her depressed mood today as 6 out of 10 and her anxiety as 8 out of 10. The patient agreed to a family meeting to work on safety planning discharge planning as well as providing psychoeducation on communication skills and conflict resolution skills within the marriage. Review of Systems All other systems reviewed negative except as stated in HPI Mental Status Examination Appearance: Appropriate Consciousness: Alert Orientation: x4 Motor Activity: Abnormal gait (requires walker) Speech: Unremarkable Language: Adequate Fund of Knowledge: Adequate Attention and Concentration: Adequate Memory: Unremarkable Mood: Sad, Anxious Affect: Anxious Thought Process & Associations: Intact Thought Content: Appropriate Hallucination Type: None Delusion Type: None Suicidal Ideation: No Suicidal Plan: No Suicidal Intention: No Homicidal Ideation: No Homicidal Plan: No Homicidal Intention: No Insight: Fair Judgment: Impulsive Assessment and Plan - Assessment (1) Major depressive disorder, recurrent, moderate Code(s): F33.1 - Major depressive disorder, recurrent, moderate Status: Acute (2) Anxiety disorder, unspecified Code(s): F41.9 - Anxiety disorder, unspecified Status: Acute (3) Chronic pain Code(s): G89.29 - Other chronic pain Status: Acute - Plan Plan: 06/29/2018: Fair response to treatment, the patient is reporting improved mood and decreased anxiety and she has tolerated the medication changes since admission. She continues to express anxiety and concern over conflicts with her spouse and expresses a belief that she may become suicidal again if discharged home without improvements in her sense of security. Her spouse was contacted by social work and he is agreeable to marriage counseling and as well as a family meeting prior to discharge any except expressed sincere motivation to support his and have her return home. Plan 1. Continue current inpatient treatment plan and stabilization. 2. Increase trazodone to 200 mg at bedtime for sleep. 3. Start Zofran 4 mg every 6 hours as needed for nausea. 4. Discharge planning: Anticipate discharge home with spouse this week if family meeting is successful. 06/30/2018: Fair response to treatment, the patient continues to deny suicidal ideations but she considers herself a high risk for a relapse of her hopelessness and helplessness with the potential for harm towards her and herself. Plan: 1. Continue inpatient treatment and stabilization. We will continue her treatment with Lexapro 20 mg a day for treatment of anxiety and depression. It is expected that with additional time at this therapeutic dose she will have further improvements in the intensity of her anxiety depression. 2. Family meeting scheduled with her spouse for tomorrow at 130 to address the safety plan, discharge treatment plan, and review of healthy communication skills for the marriage. 3. Discharge planning: The patient and her spouse agreed to couples counseling after discharge plan discharge will be for this . Justification for Continued Inpatient Stay: Patient remains an elevated risk for self-harm or harm to her spouse and will require further inpatient stabilization and preparation of a safe discharge plan. Moving patient to a less restrictive environment at this time may result in decompensation. Request Healthcare Surrogate/Guardian Advocate?: No
[2018-06-30 14:04] LABS: Calcium 8.9 mg/dL (8.5-10.1); Carbon Dioxide 28.5 meq/L (21.0-32.0); Potassium 3.7 meq/L (3.5-5.1)
[2018-06-30] MEDS: Dimethicone/Oxybenzone-Padimate Lip Balm 4.25 GM Tube TOPICAL PRN ×2 (18:01→22:08)
[2018-06-30] MEDS: traZODone 100 MG Tablet PO PRN (23:14)
[2018-07-01] MEDS: Gabapentin 300 MG Capsule PO SCH ×3 (09:01→17:52)
[2018-07-01] MEDS: Senna/Docusate Sodium 8.6/50 MG Tablet PO SCH ×2 (09:02→20:47)
[2018-07-01] MEDS: clonazePAM 1 MG Tablet PO SCH ×2 (09:02→20:47)
[2018-07-01] MEDS: Budesonide-Formoterol 80/4.5 MCG 6.9 GM Inhaler INH SCH ×2 (09:03→20:46)
[2018-07-01] MEDS: Dimethicone/Oxybenzone-Padimate Lip Balm 4.25 GM Tube TOPICAL PRN ×2 (09:17→21:34)
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
[2018-07-01] MEDS: traZODone 100 MG Tablet PO PRN (23:09)
[2018-07-02 05:19] VITALS: BP 101/64; PULSE 82; RESP 16; TEMP 97.6; O2SAT 98
[2018-07-02] MEDS: Budesonide-Formoterol 80/4.5 MCG 6.9 GM Inhaler INH SCH (08:37)
[2018-07-02] MEDS: Gabapentin 300 MG Capsule PO SCH ×2 (08:39→13:34)
[2018-07-02] MEDS: Senna/Docusate Sodium 8.6/50 MG Tablet PO SCH (08:39)
[2018-07-02] MEDS: clonazePAM 1 MG Tablet PO SCH (08:40)
[2018-07-02] MEDS ORDERED: Lidocaine 5% Patch T-DERMAL PRN (12:23)
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
== END 2018-07-02 15:20 | disposition home or self-care (01) ==
LOC: NEPE 22:48 → NEDA 06-24 10:32 → H260 06-24 10:54
PROVIDERS: ADMIT Psychiatry & Neurology Psychiatry; ATTEND Psychiatry & Neurology Psychiatry